=== PATIENT | female | born 1955 | race Caucasian/White ===

== ENCOUNTER 2022-12-31 18:34 | Emergency (ER) | payer OTHER ==
--- OUTSIDE RECORDS SUMMARY | 2022-12-31 18:37 | XMS REPORT | Continuity of Care Document ---
:1955 Author Organization [facility] t Address [address] [place] [address] [place] [id number] Care Team Providers Name Role Phone Rodney Cottrell MD Primary Care Physician RODNEY COTTRELL Attending Clinician Unavailable Problems This patient has no known problems. Allergies, Adverse Reactions, Alerts This patient has no known allergies or adverse reactions. Social History Social Habit Start Date Stop Date Quantity Comments Source Gender identity [facility] Sexual orientation [facility] Sex Assigned At [birth year] [facility] 00:00:00 00:00:00 Smoking Status Start Date Stop Date Source Tobacco smoking consumption unknown [facility] Medications This patient has no known medications. Procedures This patient has no known procedures. Plan of Care Planned Activity Planned Date Details Comments Source Future Scheduled 2022-11-30 SHINGLES VACCINES (1 Met [facility] Test 20:32:25 of 2) [code = SHINGLES VACCINES (1 of 2)] Future Scheduled 2022-11-30 COVID-19 VACCINE (3 - Me [facility] Test 20:32:25 Pfizer series) [code = COVID-19 VACCINE (3 - Pfizer series)] Future Scheduled 2022-11-30 65+ PNEUMOCOCCAL [facility] Test 20:32:25 VACCINE (1 - PCV) [code = 65+ PNEUMOCOCCAL VACCINE (1 - PCV)] Future Scheduled 2022-11-[address] [facility] Test 20:32:25 [code = INFLUENZA VACCINE] Future Scheduled 2022-11-30 Screening for [facility] Test 20:32:25 malignant neoplasm of colon (procedure) [code = 970958563] Future Scheduled 2022-11-30 Screening for [facility] Test 20:32:25 malignant neoplasm of colon (procedure) [code = 915596239] Future Scheduled 2022-11-30 Screening for [facility] Test 20:32:25 malignant neoplasm of colon (procedure) [code = 032701828] Future Scheduled 2022-11-30 Hepatitis C screening [facility] Test 20:32:25 (procedure) [code = 395204470] Future Scheduled 2022-11-30 BREAST CANCER [facility] Test 20:32:25 SCREENING [code = BREAST CANCER SCREENING] Future Scheduled 2022-11-30 Screening for [facility] Test 20:32:25 malignant neoplasm of colon (procedure) [code = 763726481] Future Scheduled 2022-11-30 Screening for [facility] Test 20:32:25 malignant neoplasm of colon (procedure) [code = 179457097] Encounters Start End Encounter Admission Attending Care Care Encounter Source Date/Time Date/Time Type Type Clinicians Facility Department ID 2020-11-30 2020-11-30 Outpatient [facility] [id number] [address] 00:00:00 00:00:00 RODNEY [address] 2020-11-30 2020-11-30 [facility] [id number] [address] 00:00:00 00:00:00 RODNEY [address] Results This patient has no known results.
[2022-12-31 19:19] LABS: Absolute Lymphocytes (CBC) 2.1 K/uL (0.7-4.9); Hematocrit 37.4 % (36.0-45.0); Lymphocytes % 18.4 % (15.3-44.8); MCV 91.1 fL (80-100); MPV 8.8 fL (7.6-11.3); RBC Red Blood Cell Count 4.11 M/uL (3.86-4.86)
[2022-12-31] MEDS ORDERED: MORPHINE 4 MG/ML SYR ONE (19:33)
[2022-12-31] MEDS ORDERED: NA CHLORIDE 0.9% 1,000 ML ONE (19:33)
[2022-12-31 19:47] LABS: Potassium 3.9 mEq/L (3.5-5.1)
[2022-12-31] MEDS ORDERED: propofoL 200 MG/20 ML VIAL IV ONE ×2 (20:03→20:30)
--- NOTE | 2022-12-31 20:20 | RAD REPORT ---
EXAM DESCRIPTION: Cipriano Keys Left12/31/2022 7:23 pm CLINICAL HISTORY: Left leg pain status post injury FINDINGS: Comminuted oblique fracture distal fibula with marked displacement of fracture fragments. Comminuted avulsion fracture medial malleolus Cortical regularity posterior malleolus may indicate another fracture. Extensive ankle dislocation
[2022-12-31] MEDS ORDERED: ONDANSETRON 4 MG/2 ML VIAL ONE (20:30)
--- NOTE | 2022-12-31 21:31 | RAD REPORT ---
EXAM DESCRIPTION: RAD - Ankle Left 3 View -12/31/2022 9:17 pm CLINICAL HISTORY: Ankle fracture FINDINGS: A splint immobilizes the trimalleolar fracture. Better alignment of the ankle mortise
--- NOTE | 2022-12-31 21:53 | ER ---
Nurse's Notes [facility] Name: Farnaz Diaz Age: 67 yrs Sex: Female : 1955 Arrival Date: 12/31/2022 Time: 18:34 Bed 3 Private MD: Rodney Cottrell V Diagnosis: Displaced trimalleolar fracture of left lower leg, initial encounter for closed fracture Presentation: 12/31 18:42 Chief complaint: Patient states: Was "untangling the neighbors horse and went to step ph over the rope" lost balance rolled L ankle, felt a pop, obvious deformity noted. Coronavirus screen: Vaccine status: Patient reports receiving the 2nd dose of the covid vaccine. Ebola Screen: No symptoms or risks identified at this time. Initial Sepsis Screen: Does the patient meet any 2 criteria? No. Patient's initial sepsis screen is negative. Does the patient have a suspected source of infection? No. Patient's initial sepsis screen is negative. Risk Assessment: Do you want to hurt yourself or someone else? Patient reports no desire to harm self or others. Onset of symptoms was December 31, 2022. 18:42 Method Of Arrival: Wheelchair ph 18:42 Acuity: MICHELL 4 ph Historical: - Allergies: 18:44 No Known Allergies; ph - Home Meds: 18:44 None [Active]; ph - PMHx: 18:44 None; ph - Immunization history:: Adult Immunizations unknown. - Social history:: Smoking status: Patient reports the use of cigarette tobacco products, smokes one-half pack cigarettes per day. Screenin:02 [facility] ED Fall Risk Assessment (Adult) History of falling in the last 3 months, vc1 including since admission No falls in past 3 months (0 pts) Confusion or Disorientation No (0 pts) Intoxicated or Sedated No (0 pts) Impaired Gait No (0 pts) Mobility Assist Device Used No (0 pt) Altered Elimination No (0 pt) Score/Fall Risk Level 0 - 2 = Low Risk Oriented to surroundings, Maintained a safe environment, Educated pt \\T\\ family on fall prevention, incl call for assistance when getting out of bed. Abuse screen: Denies threats or abuse. Nutritional screening: No deficits noted. Tuberculosis screening: No symptoms or risk factors identified. Assessment: 19:11 General: Appears in no apparent distress. uncomfortable, Behavior is calm, cooperative. cm10 Pain: Complains of pain in left ankle. Cardiovascular: No deficits noted. Capillary refill < 3 seconds. Respiratory: No deficits noted. Airway is patent Respiratory effort is even, unlabored, Respiratory pattern is regular, symmetrical. Musculoskeletal: Bony deformity noted of Left ankle Swelling present in Left ankle. 19:40 Reassessment: Assumed care of patient from PAUL Crews. vc1 21:06 Reassessment: Patient and/or family updated on plan of care and expected duration. Pain vc1 level reassessed. Patient is alert, oriented x 3, equal unlabored respirations, skin warm/dry/pink. Patient states symptoms have improved. 22:24 Reassessment: Patient and/or family updated on plan of care and expected duration. Pain vc1 level reassessed. Patient is alert, oriented x 3, equal unlabored respirations, skin warm/dry/pink. Patient states feeling better. Patient states symptoms have improved. Vital Signs: 18:42 BP 131 / 79; Pulse 58; Resp 18; Temp 98; Pulse Ox 100% on R/A; Weight 79.38 kg; Height ph 5 ft. 7 in. ; 19:57 BP 119 / 98; Pulse 65; Resp 15; Temp 99; Pulse Ox 100% on 2 lpm NC; vc1 21:00 BP 116 / 64; Pulse 60; Resp 15; Pulse Ox 100% on R/A; vc1 22:00 BP 118 / 68; Pulse 62; Resp 16; Pulse Ox 100% ; vc1 18:42 Body Mass Index 27.41 (79.38 kg, 170.18 cm) ph 19:57 See conscious sedation sheet for vitals. vc1 ED Course: 18:38 Patient arrived in ED. mr 18:38 Rodney Cottrell MD is Private Physician. mr 18:40 Luis F Andre PA is PHCP. cp 18:40 Fantasma Ivan MD is Attending Physician. cp 18:44 Triage completed. ph 18:45 Arm band placed on Patient placed in an exam room, on a stretcher. ph 18:55 Eleonora Sanderson, PAUL is Primary Nurse. cm10 19:10 Basic Metabolic Panel Sent. cm10 19:10 CBC with Diff Sent. cm10 19:10 Type And Screen Sent. cm10 19:11 Initial lab(s) drawn, by me, sent to lab. Inserted saline lock: 18 gauge in right cm10 antecubital area, using aseptic technique. Blood collected. 19:25 XRAY Tib Fib LEFT In Process Unspecified. EDMS 19:40 Patient has correct armband on for positive identification. Bed in low position. Call vc1 light in reach. Client placed on continuous cardiac and pulse oximetry monitoring. NIBP monitoring applied. 20:00 Provided Education on: Conscious Sedation. vc1 20:24 Assist provider with fracture care of left ankle Fracture is closed. Obvious deformity vc1 is noted. Circulation, motor and sensation is intact. Set up for procedure. Performed by Fantasma Ivan MD Reduced with physical manipulation. Immobilized with OCL splint, Patient tolerated well. 21:00 Eli Reinoso RN is Primary Nurse. vc1 21:20 XRAY Ankle LEFT 3 view In Process Unspecified. EDMS 21:52 Clark Elliott MD is Referral Physician. cp 22:21 IV discontinued, intact, bleeding controlled, No redness/swelling at site. Pressure vc1 dressing applied. Administered Medications: 19:10 Drug: morphine IVP or IV 4 mg Route: IVP; Infused Over: 4 mins; Site: right antecubital;cm10 19:10 Drug: Ondansetron IVP 4 mg Route: IVP; Site: right antecubital; cm10 19:20 CANCELLED (Physician Discretion): Propofol IVP 100 mg IVP once; Document RASS score. cp 19:36 Drug: morphine IVP or IV 4 mg Route: IVP; Infused Over: 4 mins; Site: right antecubital;cm10 22:22 Follow up: Response: No adverse reaction; Marked relief of symptoms vc1 19:36 Drug: NS 0.9% IV 1000 ml Route: IV; Rate: bolus; Site: right antecubital; cm10 20:15 Drug: Ondansetron IVP 4 mg Route: IVP; Site: right antecubital; vc1 22:22 Follow up: Response: No adverse reaction; Marked relief of symptoms vc1 20:17 Drug: Propofol IVP 40 mg Route: IVP; Site: right antecubital; vc1 22:22 Follow up: Response: No adverse reaction; Marked relief of symptoms vc1 20:19 Drug: Propofol IVP 40 mg Route: IVP; Site: right antecubital; vc1 22:22 Follow up: Response: No adverse reaction; Marked relief of symptoms vc1 20:21 Drug: Propofol IVP 40 mg Route: IVP; Site: right antecubital; vc1 22:22 Follow up: Response: No adverse reaction; Marked relief of symptoms vc1 Medication: 22:21 VIS not applicable for this client. vc1 Outcome: 21:53 Discharge ordered by . maya 22:21 Discharged to home via wheelchair. vc1 22:21 Condition: stable 22:21 Discharge instructions given to patient, Instructed on discharge instructions, follow up and referral plans. medication usage, crutch walking. 22:24 Patient left the ED. vc1 Signatures: Dispatcher [employer] Modesta Rivera Patricia RN RN Luis F French PA PA cp Calcote, Vanessa, RN RN vc1 Eleonora Sanderson RN RN cm10
--- NOTE | 2022-12-31 21:54 | EDPHYS ---
Physician Documentation [facility] Name: Farnaz Diaz Age: 67 yrs Sex: Female : 1955 Arrival Date: 12/31/2022 Time: 18:34 Bed 3 Private MD: Rodney Cottrell V ED Physician Fantasma Ivan HPI: 12/31 19:00 This 67 yrs old Female presents to ER via Wheelchair with complaints of Ankle Injury. cp 19:00 The patient presents with decreased range of motion, a deformity, an injury, pain, that cp is acute. The complaints affect the left ankle. 19:00 Onset: The symptoms/episode began/occurred just prior to arrival. Context: resulted cp from a mis-step by the patient, The patient is unable to bear weight. must have assistance. Associated signs and symptoms: The patient has no apparent associated signs or symptoms. Historical: - Allergies: 18:44 No Known Allergies; ph - Home Meds: 18:44 None [Active]; ph - PMHx: 18:44 None; ph - Immunization history:: Adult Immunizations unknown. - Social history:: Smoking status: Patient reports the use of cigarette tobacco products, smokes one-half pack cigarettes per day. ROS: 19:05 MS/extremity: Positive for injury or acute deformity, decreased range of motion, cp ecchymosis, pain, swelling, of the left ankle, Negative for paresthesias. 19:05 Constitutional: Negative for body aches, chills, fever, poor PO intake. cp 19:05 Cardiovascular: Negative for chest pain, palpitations. cp 19:05 Respiratory: Negative for cough, shortness of breath, wheezing. 19:05 Abdomen/GI: Negative for abdominal pain, nausea, vomiting, and diarrhea. cp 19:05 Eyes: Negative for injury, pain, redness, and discharge. cp 19:05 ENT: Negative for drainage from ear(s), ear pain, sore throat, difficulty swallowing, difficulty handling secretions. 19:05 Back: Negative for pain at rest, pain with movement. 19:05 Neuro: Negative for altered mental status, headache, numbness, weakness. 19:05 All other systems are negative. Exam: 19:10 Constitutional: The patient appears in no acute distress, alert, awake, non-toxic, well cp developed, well nourished, in obvious pain, uncomfortable. 19:10 Head/Face: Normocephalic, atraumatic. cp 19:10 Eyes: Periorbital structures: appear normal, Conjunctiva: normal, no exudate, no injection, Sclera: no appreciated abnormality, Lids and lashes: appear normal, bilaterally. 19:10 ENT: External ear(s): are unremarkable, Nose: is normal, Mouth: Lips: moist, Oral mucosa: pink and intact, moist, Posterior pharynx: is normal, airway is patent, no erythema, no exudate. 19:10 Neck: ROM/movement: is normal, is supple, without pain, no range of motions limitations. 19:10 Chest/axilla: Inspection: normal. 19:10 Cardiovascular: Rate: bradycardic, Rhythm: regular, Edema: is not appreciated, JVD: is not appreciated. 19:10 ECG was reviewed by the Attending Physician. 19:10 Respiratory: the patient does not display signs of respiratory distress, Respirations: normal, no use of accessory muscles, no retractions, labored breathing, is not present, Breath sounds: are clear throughout, no decreased breath sounds, no stridor, no wheezing. 19:10 Abdomen/GI: Inspection: abdomen appears normal, Palpation: abdomen is soft and non-tender, in all quadrants. 19:10 Back: pain, is absent, ROM is normal. 19:10 Musculoskeletal/extremity: Extremities: grossly normal except: noted in the left ankle: deformity, ecchymosis, pain, swelling, tenderness, abrasion noted medial side of left ankle. no open wounds noted, ROM: limited active range of motion, in the left ankle, Pulses: noted to be 2+ in the left dorsalis pedis artery, the left ankle Severe pain noted. 19:10 Neuro: Orientation: to person, place \T\ time. Mentation: is normal, Motor: moves all fours, strength is normal, Sensation: no obvious gross deficits. Vital Signs: 18:42 BP 131 / 79; Pulse 58; Resp 18; Temp 98; Pulse Ox 100% on R/A; Weight 79.38 kg; Height ph 5 ft. 7 in. ; 19:57 BP 119 / 98; Pulse 65; Resp 15; Temp 99; Pulse Ox 100% on 2 lpm NC; vc1 21:00 BP 116 / 64; Pulse 60; Resp 15; Pulse Ox 100% on R/A; vc1 22:00 BP 118 / 68; Pulse 62; Resp 16; Pulse Ox 100% ; vc1 18:42 Body Mass Index 27.41 (79.38 kg, 170.18 cm) ph 19:57 See conscious sedation sheet for vitals. vc1 Procedures: 20:35 Splinting: Splint applied to left ankle using Orthoglass splint, applied by myself. rn post reduction film - reveals improved alignment, Examined by me, post splint application: neurovascular intact, 2+ distal pulses palpable, brisk capillary refill noted, Patient tolerated well. Reduction: of the left ankle, using traction, manipulation, Immobilized with posterior and stirrup splint. Patient tolerated well. Post reduction film - reveals improved alignment. Moderate sedation: Pre-procedure assessment: the patient has been NPO 4 hour(s) prior to arrival, ASA physical classification: I - healthy, no underlying organic disease, Airway assessment: able to hyperextend neck, able to maintain airway, can open mouth without difficulty, Monitoring during procedure: rn cardiac rehab, continuous pulse oximetry, nurse at bedside at all times, Medications employed: propofol, Post-procedure assessment: the patient is mildly sedated, a reversal agent was not used. MDM: 18:47 Patient medically screened. cp 19:00 Differential diagnosis: fracture, sprain, dislocation, open fracture. cp 21:26 Data reviewed: vital signs, nurses notes, lab test result(s), EKG, radiologic studies, cp plain films. ED course: text sent for consult with DR Neal. 21:46 ED course: received text from DR Neal after he viewed images of left ankle. Reports cp adequate reduction and patient to f/u in clinic. 21:52 Consideration of Admission/Observation Escalation of care including cp admission/observation considered. 21:52 I considered the following discharge prescriptions or medication management in the emergency department Medications were administered in the Emergency Department. See MAR. Counseling: I had a detailed discussion with the patient and/or guardian regarding: the historical points, exam findings, and any diagnostic results supporting the discharge/admit diagnosis, lab results, radiology results, the need for outpatient follow up, for definitive care, a orthopedic surgeon, to return to the emergency department if symptoms worsen or persist or if there are any questions or concerns that arise at home. Response to treatment: the patient's symptoms have markedly improved after treatment, and as a result, I will discharge patient. 12/31 18:51 Order name: Basic Metabolic Panel; Complete Time: 20:32 cp 12/31 18:51 Order name: CBC with Diff; Complete Time: 20:32 cp 12/31 18:51 Order name: Type And Screen; Complete Time: 20:32 cp 12/31 18:51 Order name: XRAY Tib Fib LEFT; Complete Time: 20:32 cp 12/31 20:32 Interpretation: Report reviewed. cp 12/31 20:32 Order name: XRAY Ankle LEFT 3 view; Complete Time: 21:46 cp 12/31 21:46 Interpretation: Report reviewed. cp 12/31 18:51 Order name: EKG; Complete Time: 18:51 cp 12/31 18:51 Order name: IV; Complete Time: 19:11 cp 12/31 18:51 Order name: Labs collected and sent; Complete Time: 19:11 cp 12/31 18:51 Order name: EKG - Nurse/Tech; Complete Time: 19:11 cp 12/31 19:46 Order name: NPO; Complete Time: 20:59 cp EC:10 Rate is 62 beats/min. Rhythm is regular. CO interval is normal. QRS interval is normal. cp QT interval is normal. T waves are Inverted in lead aVR. Interpreted by me. Reviewed by me. Administered Medications: 19:10 Drug: morphine IVP or IV 4 mg Route: IVP; Infused Over: 4 mins; Site: right antecubital;cm10 19:10 Drug: Ondansetron IVP 4 mg Route: IVP; Site: right antecubital; cm10 19:20 CANCELLED (Physician Discretion): Propofol IVP 100 mg IVP once; Document RASS score. cp 19:36 Drug: morphine IVP or IV 4 mg Route: IVP; Infused Over: 4 mins; Site: right antecubital;cm10 22:22 Follow up: Response: No adverse reaction; Marked relief of symptoms vc1 19:36 Drug: NS 0.9% IV 1000 ml Route: IV; Rate: bolus; Site: right antecubital; cm10 20:15 Drug: Ondansetron IVP 4 mg Route: IVP; Site: right antecubital; vc1 22:22 Follow up: Response: No adverse reaction; Marked relief of symptoms vc1 20:17 Drug: Propofol IVP 40 mg Route: IVP; Site: right antecubital; vc1 22:22 Follow up: Response: No adverse reaction; Marked relief of symptoms vc1 20:19 Drug: Propofol IVP 40 mg Route: IVP; Site: right antecubital; vc1 22:22 Follow up: Response: No adverse reaction; Marked relief of symptoms vc1 20:21 Drug: Propofol IVP 40 mg Route: IVP; Site: right antecubital; vc1 22:22 Follow up: Response: No adverse reaction; Marked relief of symptoms vc1 Disposition: 01/01 14:25 Co-signature as Attending Physician, Fantasma Ivan MD I reviewed the patient's care rn provided by the Advanced Practice Provider and agree with the diagnosis and treatment plan. Disposition Summary: 12/31/22 21:53 Discharge Ordered Location: Home cp Problem: new cp Symptoms: have improved cp Condition: Stable cp Diagnosis - Displaced trimalleolar fracture of left lower leg, initial encounter for closed cp fracture Followup: cp - With: Clark Neal MD - When: 2 - 3 days - Reason: Recheck today's complaints Discharge Instructions: - Discharge Summary Sheet cp - Displaced Trimalleolar Ankle Fracture Treated With ORIF cp Forms: - Medication Reconciliation Form cp - Thank You Letter cp - Antibiotic Education cp - Prescription Opioid Use cp - Patient Portal Instructions cp Prescriptions: - acetaminophen-codeine 300-30 mg Oral tablet - take 2 tablet by ORAL route 3 times per day As needed; 20 tablet; Refills: 0, cp Product Selection Permitted - Ibuprofen 800 mg Oral Tablet - take 1 tablet by ORAL route every 8 hours As needed take with food; 30 tablet; cp Refills: 0, Product Selection Permitted - Zofran 4 mg Oral Tablet - take 1 tablet by ORAL route every 12 hours As needed; 20 tablet; Refills: 0, cp Product Selection Permitted Signatures: Dispatcher [employer] Fantasma Valdez MD MD rn Hall, Patricia, RN RN ph Page, Corey, PA PA cp Calcote, Vanessa, RN RN vc1 Eleonora Sanderson RN RN cm10 Corrections: (The following items were deleted from the chart) 12/31 19:20 19:19 Propofol IVP 100 mg IVP once; Document RASS score. ordered. cp cp 19:25 18:51 Ankle Left 3 View+RAD.RAD.BRZ ordered. EDMS EDMS
[2022-12-31 23:05] VITALS: O2SAT 100
[2022-12-31 23:10] VITALS: TEMP 99
[2022-12-31 23:13] VITALS: BP 118/68
--- NOTE | 2023-01-01 12:03 | EKG ---
Test Date: 2022-12-31 Test Time: 19:03:56 [employer]: MARY MEASUREMENT RESULTS: Intervals: Rate: 62 RI: 144 QRSD: 86 QT: 456 QTc: 462 [place]: P: 47 RI: 144 QRS: 46 T: 59 INTERPRETIVE STATEMENTS: Sinus rhythm with premature supraventricular complexes Otherwise normal ECG No previous ECG available for comparison Electronically Signed On 01-01-23 12:01:56 CDT by Rene Hallman
== END 2022-12-31 22:24 | disposition home or self-care (01) ==
LOC: ER 18:34
PROC: 0QSK34Z Reposition Left Fibula with Internal Fixation Device, Percutaneous Approach (ICD-10-PCS; principal; 2022-12-31)
DX: S82.852A Displaced trimalleolar fracture of left lower leg, initial encounter for closed fracture (principal); F17.210 Nicotine dependence, cigarettes, uncomplicated
CPT/HCPCS: 85025; 80048; 36415; 86900; 86850; 86901; 73590; 73610; 27818; J2704 ×2; J2405; J7030; 93005